=== PATIENT | male | born 1980 | race Caucasian/White ===

== ENCOUNTER 2017-04-15 06:26 | Emergency (ER) | payer OTHER ==
[2017-04-15] MEDS ORDERED: ONDANSETRON 4 MG/2 ML VIAL IVP ONE ×2 (06:39→07:22)
[2017-04-15] MEDS ORDERED: NS 1,000 ML IV ONE ×2 (06:56→07:05)
[2017-04-15 07:01] LABS: PLATELET COUNT 257 10^3/uL (150-400)
[2017-04-15] MEDS ORDERED: LORazepam 2 MG/ML INJ IVP ONE (07:05)
--- NOTE | 2017-04-15 07:13 | EDPHY ---
H & P Stated Complaint: N/V, abd pain Time Seen by Provider: 04/15/17 06:51 HPI/ROS: CHIEF COMPLAINT: Acute abdominal pain, nausea, vomiting, diarrhea HISTORY OF PRESENT ILLNESS: The patient presents to the ED with complaints of abdominal pain, nausea, vomiting and diarrhea. The patient's symptoms began at 10 o'clock last night. The patient does report having alcoholic beverages last night prior to the development of his symptoms. The patient does have a history of type 1 diabetes which has been under good control recently. The patient does report he is a near daily marijuana user. The patient denies any recent infectious symptoms of fever, cough or congestion. The patient reports his abdominal pain is generalized and moderate in nature. REVIEW OF SYSTEMS: A comprehensive 10 point review of systems is otherwise negative aside from elements mentioned in the history of present illness. Source: Patient - Personal History Current Tetanus/Diphtheria Vaccine: Yes - Medical/Surgical History Hx Asthma: No Hx Chronic Respiratory Disease: No Hx Diabetes: Yes Hx Cardiac Disease: No Hx Renal Disease: No Hx Cirrhosis: No Hx Alcoholism: No Hx HIV/AIDS: No Hx Splenectomy or Spleen Trauma: No Other PMH: DM1, hypothyroidism, GERD, - Social History Smoking Status: Current some day smoker - Physical Exam Exam: General Appearance: Alert, mild discomfort secondary to pain and retching Eyes: Pupils equal and round no pallor or injection ENT, Mouth: Mucous membranes moist Respiratory: There are no retractions, lungs are clear to auscultation Cardiovascular: Regular rate and rhythm Gastrointestinal: Minimal epigastric tenderness Neurological: A&O, normal motor function, normal sensory exam, normal cranial nerves Skin: Warm and dry, no rashes Musculoskeletal: Neck is supple nontender Extremities: symmetrical, full range of motion Constitutional: Initial Vital Signs Temperature (C) 36.6 C 04/15/17 06:31 Heart Rate 118 H 04/15/17 06:31 Respiratory Rate 18 04/15/17 06:31 Blood Pressure 145/101 H 04/15/17 06:31 O2 Sat (%) 99 04/15/17 06:31 O2 Delivery Mode Room Air Allergies/Adverse Reactions: No Known Allergies Allergy (Unverified 04/15/17 06:34) Home Medications: Medication Instructions Recorded Humalog 04/15/17 Levothyroxine 04/15/17 Ondansetron Odt [Zofran Odt] 4 mg PO Q4PRN PRN #20 tab 04/15/17 Protonix 04/15/17 Ranitidine HCl 04/15/17 ZYRTEC 04/15/17 Zofran 4 mg Inj (*) 04/15/17 Medical Decision Making ED Course/Re-evaluation: The patient presents to the ED with complaints of acute abdominal pain, nausea and multiple episodes of vomiting. The patient does have a history of type 1 diabetes. Patient had an IV established. He received 2 L of normal saline for dehydration. The patient received 4 mg of IV Zofran and 1 mg of IV Ativan. The patient's laboratory studies were checked. He does have a slightly elevated glucose of 200 without evidence of diabetic ketoacidosis. The patient underwent serial examinations in the ED. At 9 o'clock he was given a oral feeding challenge. I re-evaluated the patient at 9:20 a.m. And he is feeling much better. His abdominal examination is benign and he would like to be discharged home. The patient has been instructed to return to the ED for any worsening abdominal pain , vomiting or other concerns. Differential Diagnosis: Differential diagnosis considered includes gastroenteritis, dehydration, metabolic abnormality, hyperglycemia, diabetic ketoacidosis, pancreatitis - Data Points Laboratory Results: Laboratory Results 04/15/17 06:35 04/15/17 06:35 04/15/17 04/15/17 04/15/17 06:35 06:35 06:31 WBC 11.87 10^3/uL H 10^3/uL (3.80-9.50) RBC 5.52 10^6/uL 10^6/uL (4.40-6.38) Hgb 17.0 g/dL g/dL (13.7-17.5) Hct 47.8 % % (40.0-51.0) MCV 86.6 fL fL (81.5-99.8) MCH 30.8 pg pg (27.9-34.1) MCHC 35.6 g/dL g/dL (32.4-36.7) RDW 12.1 % % (11.5-15.2) Plt Count 257 10^3/uL 10^3/uL (150-400) MPV 11.4 fL fL (8.7-11.7) Neut % (Auto) 91.4 % H % (39.3-74.2) Lymph % (Auto) 6.0 % L % (15.0-45.0) Meade % (Auto) 1.9 % L % (4.5-13.0) Eos % (Auto) 0.0 % L % (0.6-7.6) Baso % (Auto) 0.3 % % (0.3-1.7) Nucleat RBC Rel Count 0.0 % % (0.0-0.2) Absolute Neuts (auto) 10.85 10^3/uL H 10^3/uL (1.70-6.50) Absolute Lymphs (auto) 0.71 10^3/uL L 10^3/uL (1.00-3.00) Absolute Monos (auto) 0.23 10^3/uL L 10^3/uL (0.30-0.80) Absolute Eos (auto) 0.00 10^3/uL L 10^3/uL (0.03-0.40) Absolute Basos (auto) 0.03 10^3/uL 10^3/uL (0.02-0.10) Absolute Nucleated RBC 0.00 10^3/uL 10^3/uL (0-0.01) Immature Gran % 0.4 % % (0.0-1.1) Immature Gran # 0.05 10^3/uL 10^3/uL (0.00-0.10) Sodium 143 mEq/L mEq/L (135-145) Potassium 4.3 mEq/L mEq/L (3.5-5.2) Chloride 103 mEq/L mEq/L (97-110) Carbon Dioxide 19 mEq/l L mEq/l (22-31) Anion Gap 21 mEq/L H mEq/L (8-16) BUN 14 mg/dL mg/dL (7-23) Creatinine 0.8 mg/dL mg/dL (0.7-1.3) Estimated GFR > 60 Glucose 234 mg/dL H mg/dL (70-100) POC Glucose 205 mg/dL H mg/dL (70-100) Calcium 10.5 mg/dL H mg/dL (8.5-10.4) Lipase 35 IU/L IU/L (23-300) Medications Given: Discontinued Medications Sodium Chloride (Ns) 1,000 mls @ 0 mls/hr IV EDNOW ONE; Wide Open PRN Reason: Protocol Stop: 04/15/17 06:57 Last Admin: 04/15/17 07:15 Dose: 1,000 mls Sodium Chloride (Ns) 1,000 mls @ 0 mls/hr IV EDNOW ONE; Wide Open PRN Reason: Protocol Stop: 04/15/17 07:06 Last Admin: 04/15/17 07:16 Dose: 1,000 mls Lorazepam (Ativan Injection) 1 mg IVP EDNOW ONE Stop: 04/15/17 07:06 Last Admin: 04/15/17 07:15 Dose: 1 mg Ondansetron HCl (Zofran) 4 mg IVP EDNOW ONE Stop: 04/15/17 06:40 Last Admin: 04/15/17 06:40 Dose: 4 mg Ondansetron HCl (Zofran) 4 mg IVP EDNOW ONE Stop: 04/15/17 07:23 Last Admin: 04/15/17 07:54 Dose: 4 mg Point of Care Test Results: 04/15/17 06:31 POC Glucose 205 H Departure - Departure Disposition: Home, Routine, Self-Care Clinical Impression: Dehydration, Acute abdominal pain, Hyperglycemia Condition: Good Instructions: Dehydration (ED) Additional Instructions: 1. Zofran as needed for nausea. 2. Return to the ED for any worsening abdominal pain as this may be the sign of a more serious conditions such as appendicitis. 3. Return to the ED for any ongoing vomiting, markedly elevated blood sugars, fever, worsening symptoms or other concerns.
[2017-04-15 09:40] VITALS: BP 145/90; PULSE 88; RESP 19; TEMP 98.7; O2SAT 100
== END 2017-04-15 09:30 | disposition home or self-care (01) ==
DX: R10.9 Unspecified abdominal pain (principal); E86.0 Dehydration; E10.65 Type 1 diabetes mellitus with hyperglycemia; E86.9 Volume depletion, unspecified; F17.200 Nicotine dependence, unspecified, uncomplicated
CPT/HCPCS: 96374; J2060; J2405